=== PATIENT | male | born 1970 | race Caucasian/White ===

== ENCOUNTER 2022-08-14 13:18 | Inpatient (IN) | payer SELFPAY ==
[~2022-08-14] VITALS: Ht 170.2 cm; Wt 86.2 kg
--- NOTE | 2022-08-14 | NUR ---
SUPERVISOR ASSEMBLY NOTES STARTED IV FLUIDS, NS 1000ML AT 50ML/HR INFUSING WELL. WELL CONTINUE TO MONITOR. Addendum: 08/15/22 at 0003 by Laura Sin RN SUPERVISOR ASSEMBLY NOTES STARTED IV FLUIDS, NS 1000ML AT 50ML/HR INFUSING WELL. WELL CONTINUE TO MONITOR. THE FIRST ONE HAS A WRONG DATE.
--- NOTE | 2022-08-14 13:40 | NUR ---
C/O SUBSTERNAL CP, NON RADIATING 2 HOURSE AGO WHILE WALKING. DENIES SOB. PT AMBULATED TO BED WITH STEADY GAIT. VSS. AAOX4. AWAITING MD ORDERS.
--- NOTE | 2022-08-14 13:57 | NUR ---
ESTABLISHED IV ACCESS 20G LEFT HAND, BLOOD DRAWN AND SENT TO LAB
[2022-08-14 14:01] LABS: CALCIUM, SERUM 9.4 mg/dL (8.5-10.1); CARBON DIOXIDE 22 mmol/L (21-32); CHLORIDE 97 mmol/L (98-107); GLUCOSE 241 mg/dL (74-106); POTASSIUM 4.5 mmol/L (3.5-5.1); SODIUM SERUM 133 mmol/L (136-145); UREA NITROGEN, BLOOD 21 mg/dL (7-18)
--- NOTE | 2022-08-14 14:37 | NUR ---
XRAY AT BEDSIDE
[2022-08-14 15:00] LABS: BASOPHILS % (AUTO) 0.3 % (0.0-2.0); EOSINOPHILS % (AUTO) 1.3 % (0.0-6.0); HEMATOCRIT 43 % (39-51); HEMOGLOBIN 14.3 g/dL (13.5-17.5); LYMPHOCYTES # (AUTO) 2.2 K/uL (0.8-4.8); LYMPHOCYTES % (AUTO) 25.9 % (20.0-44.0); MEAN CORPUSCULAR HGB CONC 33 g/dl (31.0-36.0); MEAN CORPUSCULAR VOLUME 89 fL (80-96); MONOCYTES # (AUTO) 0.6 K/uL (0.1-1.30); MONOCYTES % (AUTO) 7.2 % (2.0-12.0); NEUTROPHILS # (AUTO) 5.5 K/uL (1.8-8.9); NEUTROPHILS % (AUTO) 65.3 % (43.0-81.0); PLATELET COUNT (AUTO) 308 K/uL (150-450); RED BLOOD CELL COUNT(AUTO) 4.88 MIL/uL (4.5-6.0); WHITE BLOOD COUNT (AUTO) 8.3 K/uL (4.3-11.0)
[2022-08-14] MEDS ORDERED: IV NS 0.9% 1,000 ML BAG IV ONE (15:00)
--- NOTE | 2022-08-14 15:08 | NUR ---
VIDEOGAME TESTER AT BEDSIDE
[2022-08-14 17:06] LABS: BILIRUBIN,URINE NEGATIVE (NEGATIVE); COLOR,URINE YELLOW (YELLOW); LEUKOCYTE ESTERASE ,URINE NEGATIVE (NEGATIVE); NITRITE, URINE NEGATIVE (NEGATIVE); PH,URINE 5.5 (5.0-8.0); PROTEIN,URINE NEGATIVE (NEGATIVE); UGLUCOSE 3+ mg/dL (NEGATIVE); UROBILINOGEN,URINE 0.2 EU/dL (0.2)
[2022-08-14 17:16] LABS: BACTERIA,URINE None seen /HPF (None Seen); RBC,URINE 0-2 /HPF (0-2); SQUAMOUS EPITHELIAL CELL,UR 0-2 /HPF (None Seen); WBC,URINE 0-2 /HPF (0-3)
[2022-08-14] MEDS ORDERED: MORPHINE SULFATE INJ 4 MG/ML DISP.SYRIN ONE (18:14)
[2022-08-14] MEDS ORDERED: ASPI-1169 PO (18:28)
[2022-08-14] MEDS ORDERED: ATOR80TA PO (18:28)
[2022-08-14] MEDS ORDERED: BACL10TA PO (18:28)
[2022-08-14] MEDS ORDERED: PANT40TA2 PO (18:28)
[2022-08-14] MEDS ORDERED: METO-357 PO (18:28)
[2022-08-14] MEDS ORDERED: PREG150C PO (18:28)
[2022-08-14] MEDS ORDERED: ISOS30TA86 PO (18:28)
[2022-08-14] MEDS ORDERED: DULO30CA2 PO (18:28)
[2022-08-14] MEDS ORDERED: EMPA10TA PO (18:28)
[2022-08-14] MEDS ORDERED: OMEG1CAP55 PO (18:28)
[2022-08-14] MEDS ORDERED: FENO200C PO (18:28)
[2022-08-14] MEDS ORDERED: LINA5TAB PO (18:28)
[2022-08-14] MEDS ORDERED: CLOP75TA15 PO (18:28)
[2022-08-14] MEDS ORDERED: EZET10TA16 PO (18:28)
[2022-08-14] MEDS ORDERED: LISI20TA31 PO (18:28)
--- NOTE | 2022-08-14 18:29 | NUR ---
COVID SWAB COLLECTED AND SENT TO LAB
[2022-08-14] MEDS ORDERED: MORPHINE SULFATE INJ 2 MG/ML DISP.SYRIN IV ONE (18:30)
[2022-08-14] MEDS ORDERED: ASPIRIN 325 MG TABLET PO ONE (18:30)
--- NOTE | 2022-08-14 18:30 | NUR ---
COVID swab collected and sent to lab.
--- NOTE | 2022-08-14 20:57 | NUR ---
RM 307-1
[2022-08-14] MEDS ORDERED: HYDROCODONE/APAP 5/325MG TABLET PO ONE (21:00)
--- NOTE | 2022-08-14 21:01 | NUR ---
[facility] PAGED
--- NOTE | 2022-08-14 21:42 | NUR ---
REPORT GIVEN TO ASPEN TERRELL FOR AISHWARYA
[2022-08-14] MEDS ORDERED: HYDROCODONE/APAP 5/325MG TABLET ONE (21:54)
[2022-08-14 22:00] VITALS: BP 132/94
[2022-08-14] MEDS ORDERED: MAG HYDROX/AL HYDROX/SIMETH 30 ML UDC PO PRN (22:00)
[2022-08-14] MEDS ORDERED: ONDANSETRON HCL/PF 4 MG/2 ML VIAL IVP PRN (22:00)
[2022-08-14] MEDS ORDERED: DOCUSATE SODIUM 100 MG CAPSULE PO PRN (22:00)
[2022-08-14] MEDS ORDERED: ACETAMINOPHEN 325 MG TABLET PO PRN (22:00)
[2022-08-14 23:12] VITALS: BP 132/94
[2022-08-14] MEDS: IV NS 0.9% 1,000 ML IV SCH (23:17)
--- NOTE | 2022-08-14 23:55 | NUR ---
HEEL SHAVER ADMITTING NOTES ADMITTED A 51 Y/O MALE, WITH C/C OF CHEST PAIN, PATIENT RECEIVED VIA GURNEY, PATIENT IS A/O X 4. PATIENT IS BREATHING EVENLY AND UNLABORED ON ROOM AIR. NO SIGNS OF DISTRESS NOTED. VITAL SIGNS BP:132/94 TEMP:97.7 HR:80 SPO2: 97.PATIENT DENIES ANY PAIN OR DISCOMFORT AT THIS TIME. NO CHEST PAIN NOTED AT THIS TIME. SKIN ASSESSMENT PERFORMED, SKIN C/D/I. NO EDEMA PRESENT. BOWEL SOUNDS ACTIVE. PATIENT HAS IV ACCESS LEFT HAND #20G SL PATENT AND INTACT. HISTORY TAKEN AND RECORDED, PATIENT WAS ORIENTED TO ROOM AND UNIT. HOW TO USE THE CALL LIGHT. BELONGINGS ACCOUNTED FOR. KEPT BED ON LOWER LOCKED POSITION. KEPT SIDE RAILS UP X 2 ALL THE TIME. SAFETY MEASURES MAINTAINED.
[2022-08-15] VITALS (7 sets, daily range): BP systolic 98–122; BP diastolic 63–71
[2022-08-15] MEDS ORDERED: DEXTROSE 50%-WATER 50 ML DISP.SYRIN IV PRN (02:00)
[2022-08-15] MEDS: MORPHINE SULFATE INJ 2 MG/ML DISP.SYRIN IV PRN ×2 (03:15→21:54)
--- NOTE | 2022-08-15 03:15 | NUR ---
CAR DETAILER NOTES PATIENT COMPLAIN OF CHEST PAIN CHARACTERIZE STUBBING CHEST PAIN ON LEFT SIDE OF THE CHEST. ASSESSMENT DONE. HOOKED TO OXYGEN VIA NASAL CANNULA AT 2LPM. WITH VITAL SIGNS OF BP:124/89, HR:62, RR:18. MORPHINE 1MG GIVEN IV GIVEN. WILL CONTINUE TO MONITOR.
[2022-08-15] MEDS: INSULIN REGULAR, HUMAN 100 UNIT/ML 3 ML VIAL SQ PRN ×4 (05:39→22:10)
[2022-08-15 05:51] LABS: BASOPHILS % (AUTO) 0.3 % (0.0-2.0); EOSINOPHILS % (AUTO) 4.1 % (0.0-6.0); HEMATOCRIT 42 % (39-51); HEMOGLOBIN 13.9 g/dL (13.5-17.5); LYMPHOCYTES # (AUTO) 2.1 K/uL (0.8-4.8); MEAN CORPUSCULAR HGB CONC 33 g/dl (31.0-36.0); MEAN CORPUSCULAR VOLUME 89 fL (80-96); MONOCYTES # (AUTO) 0.6 K/uL (0.1-1.30); MONOCYTES % (AUTO) 10.4 % (2.0-12.0); NEUTROPHILS # (AUTO) 2.5 K/uL (1.8-8.9); NEUTROPHILS % (AUTO) 46.2 % (43.0-81.0); PLATELET COUNT (AUTO) 276 K/uL (150-450); RED BLOOD CELL COUNT(AUTO) 4.71 MIL/uL (4.5-6.0); WHITE BLOOD COUNT (AUTO) 5.4 K/uL (4.3-11.0)
[2022-08-15 06:21] LABS: ALBUMIN 3.6 g/dL (3.4-5.0); BILIRUBIN,TOTAL 0.6 mg/dL (0.2-1.0); CALCIUM, SERUM 8.7 mg/dL (8.5-10.1); CREATININE 1.2 mg/dL (0.6-1.3); MAGNESIUM 2.3 mg/dL (1.8-2.4); PHOSPHORUS 4.2 mg/dL (2.5-4.9); POTASSIUM 4.2 mmol/L (3.5-5.1); TOTAL PROTEIN, SERUM 6.8 g/dL (6.4-8.2)
[2022-08-15 06:32] LABS: THYROID STIMULATING HORMONE 2.173 uIU/mL (0.358-3.74)
--- NOTE | 2022-08-15 06:36 | NUR ---
AUTO SERVICE REPRESENTATIVE CLOSING NOTES PATIENT IS IN BED, ON MODERATE HIGH BACK REST POSITION. A/O X 4. ABLE TO VERBALIZED NEEDS. NO S/S OF PAIN AND CHEST PAIN AT THIS TIME. ATTACHED TO TELE MONITORING DEVICE. WITH IV ACCESS AT LEFT HAND WITH NS AT 50ML/HR INFUSING WELL.MORNING CARE RENDERED.INSTRUCTED TO REMAIN AT BEDREST AND USE URINAL FOR NOW TO AVOID TRIGGERS FOR CHEST PAIN.ACCU CHECK DONE AND RECORDED. ALL DUE MEDICATIONS GIVEN AND ALL NEEDS ATTENDED. KEPT BED ON LOWER LOCKED POSITION. KEPT SIDE RAILS X 2 UP ALL THE TIME. KPET CALL LIGHT WITHIN REACH.WILL ENDORSED TO AM SHIFT FOR AISHWARYA.
[2022-08-15] MEDS: BLOOD SUGAR DIAGNOSTIC 1 EACH STRIP IN SCH ×4 (06:50→21:38)
--- NOTE | 2022-08-15 07:20 | NUR ---
ms rn received on bed, awake,alert, oriented x4,not in any form of distress, denies chest pain at this time, ambulatory patient, nsr to jones at times on monitor, will monitor patient.all needs attended.
[2022-08-15] MEDS: PANTOPRAZOLE 40 MG TABLET.DR PO SCH (07:51)
--- NOTE | 2022-08-15 08:30 | NUR ---
ms irwin breakfast served,due meds given except lyrica w/s was not available at this time.
[2022-08-15] MEDS: DULOXETINE HCL 30 MG CAPSULE.DR PO SCH (08:40)
[2022-08-15] MEDS: ISOSORBIDE MONONITRATE (30MG) 30 MG TAB.SR.24H PO SCH (08:41)
[2022-08-15] MEDS: CLOPIDOGREL BISULFATE 75 MG TABLET PO SCH (08:41)
[2022-08-15] MEDS: BACLOFEN (10 MG) 10 MG TABLET PO SCH (08:41)
[2022-08-15] MEDS: LISINOPRIL (20MG) 20 MG TABLET PO SCH (08:41)
[2022-08-15] MEDS: LINAGLIPTIN 5 MG TABLET PO SCH (08:42)
[2022-08-15] MEDS: METOPROLOL SUCCINATE 50 MG TAB.SR.24H PO SCH (08:42)
[2022-08-15] MEDS: EZETIMIBE 10 MG TABLET PO SCH (08:42)
[2022-08-15] MEDS: ENOXAPARIN SODIUM 40 MG/0.4 ML DISP.SYRIN SQ SCH (08:44)
[2022-08-15] MEDS: ASPIRIN 81 MG TAB.CHEW PO SCH (08:48)
[2022-08-15] MEDS ORDERED: ASPIRIN 81 MG TAB.CHEW PO SCH (09:00)
[2022-08-15] MEDS ORDERED: Medication Not On Formulary EA (Fenofibrate,Micronized (Fenofibrate) 200 MG) PO SCH (09:00)
[2022-08-15] MEDS ORDERED: Medication Not On Formulary EA (Empagliflozin (Jardiance) 10 MG) PO SCH (09:00)
[2022-08-15] MEDS ORDERED: Medication Not On Formulary EA (Omega-3 Acid Ethyl Esters (Lovaza) 2 GM) PO SCH (09:00)
[2022-08-15] MEDS ORDERED: PREGABALIN 25 MG CAPSULE PO SCH ×2 (09:00→18:14)
--- NOTE | 2022-08-15 09:00 | NUR ---
ms rn medicated chest pain w/ nitro, will evaluate patient.
--- NOTE | 2022-08-15 09:06 | NUR ---
ms rn chest pain not releive at this time, another nitro give sl, will evaluate later.
[2022-08-15 09:21] LABS: CHOLESTEROL 223 mg/dL (<200); HDL CHOLESTEROL 34 mg/dL (40-60); LDL 79 mg/dL (0-99); TRIGLYCERIDES 919 mg/dL (30-150)
[2022-08-15] MEDS: NITROGLYCERIN 0.4 MG/TAB BOTTLE SL PRN ×2 (10:30→10:45)
[2022-08-15] MEDS: Fenofibrate 48 MG TABLET PO SCH (10:52)
--- NOTE | 2022-08-15 12:30 | NUR ---
ms rn ambulated w/ PT, tolerated well.
--- NOTE | 2022-08-15 14:30 | NUR ---
ms rn was seen by dr. koo for cori in am.
--- NOTE | 2022-08-15 17:00 | NUR ---
ms rn on bed. no distress noted.
[2022-08-15] MEDS: IV NS 0.9% 1,000 ML IV SCH (18:27)
[2022-08-15] MEDS: PREGABALIN 100 MG CAPSULE PO SCH (18:31)
--- NOTE | 2022-08-15 19:30 | NUR ---
PULPER OPERATOR NOTES RECEIVED LYING ON BED,A/O X4,BREATHING NORMAL,O2 1L IN USED TO KEEP O2 SAT ABOVE 90%.DENIES CHEST DISCOMFORTS AT THE MOMENT.IVF NS AT 50ML/HR RATE INFUSING WELL ON LEFT HAND,SITE PATENT.INSTRUCTED NPO AFTER MIDNIGHT GOING FOR NM MYOCARDIAL STRESS TEST TOMORROW UNDER DR CH.CONSENT ON CHART.WILL CONTINUE TO MONITOR STATUS.CALL LIGHT IN REACH,NEEDS ANTICIPATED.
[2022-08-15] MEDS ORDERED: TEMAZEPAM 15 MG CAPSULE PO PRN (21:00)
--- NOTE | 2022-08-15 21:54 | NUR ---
PACKING FLOOR WORKER NOTES PAIN MANAGEMENT C/O CHEST,UPPER BACK PAIN 7/10 ON PAIN SCALE,MORPHINE 1MG IV GIVEN ORDERED.
[2022-08-15] MEDS ORDERED: ATORVASTATIN 40 MG TABLET PO SCH (22:00)
--- NOTE | 2022-08-15 22:00 | NUR ---
SUPERVISOR COIN MACHINE NOTES ACCU-CHECK BLOOD SUGAR CHECK 236,COVERED WITH HUMULIN R 4 UNITS PER SLIDING SCALE.
[2022-08-16] VITALS: BP 134/95
[2022-08-16] MEDS ORDERED: MORPHINE SULFATE INJ 2 MG/ML DISP.SYRIN IV ONE
--- NOTE | 2022-08-16 | NUR ---
PRESCHOOL ASSISTANT NOTES PAIN MANAGEMENT MORPHINE 2MG IV GIVEN X ONE DOSE ORDERED.
--- NOTE | 2022-08-16 00:30 | NUR ---
SHOE IRONER NOTES STILL IN A LOT OF PAIN,ON CHEST AND BACK,SHILA ACNP MADE AWARE,WITH NEW ORDER NOTED AND CARRIED OUT.
--- NOTE | 2022-08-16 01:00 | NUR ---
RETURNS PROCESSOR NOTES C/O INSOMNIA,RESTORIL 15MG PO GIVEN ORDERED.
[2022-08-16 01:08] VITALS: BP 134/95
[2022-08-16 02:04] VITALS: BP 134/95
[2022-08-16] MEDS: MORPHINE SULFATE INJ 2 MG/ML DISP.SYRIN IV PRN (02:58)
--- NOTE | 2022-08-16 02:58 | NUR ---
PYTHON PROGRAMMER NOTES PAIN MANAGEMENT HAVING PAIN ON CHEST AND UPPER BACK,MORPHINE 1MH IV GIVEN ORDERED.
[2022-08-16 04:00] VITALS: BP_SYST 127; BP_SYST 129; BP_DIAS 77
[2022-08-16 05:47] LABS: BASOPHILS % (AUTO) 0.4 % (0.0-2.0); EOSINOPHILS % (AUTO) 4.3 % (0.0-6.0); HEMATOCRIT 41 % (39-51); HEMOGLOBIN 13.8 g/dL (13.5-17.5); LYMPHOCYTES # (AUTO) 1.8 K/uL (0.8-4.8); LYMPHOCYTES % (AUTO) 36.2 % (20.0-44.0); MEAN CORPUSCULAR HGB CONC 34 g/dl (31.0-36.0); MEAN CORPUSCULAR VOLUME 88 fL (80-96); MONOCYTES # (AUTO) 0.5 K/uL (0.1-1.30); NEUTROPHILS # (AUTO) 2.3 K/uL (1.8-8.9); NEUTROPHILS % (AUTO) 48.1 % (43.0-81.0); PLATELET COUNT (AUTO) 235 K/uL (150-450); RED BLOOD CELL COUNT(AUTO) 4.65 MIL/uL (4.5-6.0); WHITE BLOOD COUNT (AUTO) 4.9 K/uL (4.3-11.0)
[2022-08-16 05:59] LABS: CALCIUM, SERUM 8.6 mg/dL (8.5-10.1); CREATININE 0.9 mg/dL (0.6-1.3); PHOSPHORUS 3.4 mg/dL (2.5-4.9); POTASSIUM 3.9 mmol/L (3.5-5.1)
--- NOTE | 2022-08-16 06:44 | NUR ---
RETAIL SALES MANAGER NOTES STILL SLEEPING THIS TIME,RESTORIL EFFECTIVE,PAIN IMPROVED WITH MORPHINE,VITAL SIGNS STABLE,KEPT NPO FOR NUCLEAR MEDICINE MYOCARDIAL STRESS TEST.IVF INFUSING WELL ON LEFT SALINE LOCK.IN NO ACUTE DISTRESS.WILL ENDORSE TO DAY NURSE FOR AISHWARYA.
[2022-08-16 07:00] VITALS: BP 132/85
--- NOTE | 2022-08-16 07:30 | NUR ---
FABRICATION OPERATOR OPENING NOTE Received patient in bed, awake, alert, oriented x 4, not in any form of distress, denies chest pain at this time, ambulatory. Peripheral IV catheter to left hand is intact, patent, with NS infusing at 50 mLs/hr without complications. Patient showing NSR HR in 70s to 80s bpm on tele monitor. Will continue to monitor and care for patient per MD POC.
[2022-08-16] MEDS ORDERED: REGADENOSON 0.4 MG/5 ML DISP.SYRIN IVP ONE (08:00)
[2022-08-16] MEDS: BLOOD SUGAR DIAGNOSTIC 1 EACH STRIP IN SCH ×2 (08:29→11:27)
[2022-08-16] MEDS: PANTOPRAZOLE 40 MG TABLET.DR PO SCH (08:29)
--- NOTE | 2022-08-16 11:00 | NUR ---
TELEMETRY DISCONTINUED BY Removed pvc monitor per MD order.
[2022-08-16] MEDS: ASPIRIN 81 MG TAB.CHEW PO SCH (11:21)
[2022-08-16] MEDS: DULOXETINE HCL 30 MG CAPSULE.DR PO SCH (11:22)
[2022-08-16] MEDS: BACLOFEN (10 MG) 10 MG TABLET PO SCH (11:23)
[2022-08-16] MEDS: CLOPIDOGREL BISULFATE 75 MG TABLET PO SCH (11:23)
[2022-08-16] MEDS: ISOSORBIDE MONONITRATE (30MG) 30 MG TAB.SR.24H PO SCH (11:23)
[2022-08-16] MEDS: LISINOPRIL (20MG) 20 MG TABLET PO SCH (11:24)
[2022-08-16] MEDS: EZETIMIBE 10 MG TABLET PO SCH (11:25)
[2022-08-16] MEDS: Fenofibrate 48 MG TABLET PO SCH (11:25)
[2022-08-16] MEDS: METOPROLOL SUCCINATE 50 MG TAB.SR.24H PO SCH (11:25)
[2022-08-16] MEDS: ENOXAPARIN SODIUM 40 MG/0.4 ML DISP.SYRIN SQ SCH (11:26)
[2022-08-16] MEDS: PREGABALIN 100 MG CAPSULE PO SCH (11:31)
[2022-08-16] MEDS: LINAGLIPTIN 5 MG TABLET PO SCH (11:31)
[2022-08-16] MEDS: IV NS 0.9% 1,000 ML IV SCH (14:00)
[2022-08-16] MEDS ORDERED: RANO500T3 PO (14:57)
[2022-08-16] MEDS: INSULIN REGULAR, HUMAN 100 UNIT/ML 3 ML VIAL SQ PRN (15:00)
[2022-08-16] MEDS: NITROGLYCERIN 0.4 MG/TAB BOTTLE SL PRN (15:58)
[2022-08-16 16:00] VITALS: BP 108/84
--- NOTE | 2022-08-16 16:29 | NUR ---
MS BAND SAW FILER TO HOME NOTE Patient removed his own peripheral IV catheter fully intact from his left hand without any complications. Patient demonstrated understanding of his home care discharge instructions using the teach back method in his own words. Patient signed belongings/valuables listed as all accounted for and in his possession upon departure from hospital. Patient had a brief episode of chest pain alleviated with nitrostat sublingual x 2 and oxygen @ 6 LPM via nasal cannula. Patient stated complete relief from chest pain. Patient departed [facility] at 16:15hours of foot, walking along [facility] to nearest [facility] pharmacy.
== END 2022-08-16 16:15 | disposition home or self-care (01) | DRG 303 ==
LOC: ER 13:20 → TELE 21:01 → MED 08-16 09:44
PROVIDERS: ADMIT Registered Nurse; ATTEND Nurse Practitioner Family
DX: I25.110 Atherosclerotic heart disease of native coronary artery with unstable angina pectoris (principal); M84.48XA Pathological fracture, other site, initial encounter for fracture; E86.0 Dehydration; Z95.5 Presence of coronary angioplasty implant and graft; Z95.1 Presence of aortocoronary bypass graft; Z20.822 Contact with and (suspected) exposure to COVID-19; I25.2 Old myocardial infarction; Z79.82 Long term (current) use of aspirin; Z79.02 Long term (current) use of antithrombotics/antiplatelets; Z79.899 Other long term (current) drug therapy; E11.9 Type 2 diabetes mellitus without complications; E78.00 Pure hypercholesterolemia, unspecified; Z79.84 Long term (current) use of oral hypoglycemic drugs; Z68.30 Body mass index [BMI] 30.0-30.9, adult; E66.9 Obesity, unspecified; Z72.0 Tobacco use; I10 Essential (primary) hypertension
CPT/HCPCS: 36415; 71045-TC; 80048-TC; 80053-TC; 80061-TC; 81001; 82962-TC; 83735-TC; 84100-TC; 84443-TC; 84484-TC; 85025-TC; 87081-TC; 93307-TC; 97116-TC; 97530-TC; A4223; A9502; G0378; J1650; J1815; J2270; J2785; J7030